=== PATIENT | male | born 1945 | race Caucasian/White ===

== ENCOUNTER 2018-01-06 15:37 | Observation (INO) | payer MEDICARE, BC ==
[~2018-01-06] VITALS: Ht 170.2 cm; Wt 86.2 kg
[~2018-01-06 15:37] MED LIST: ESCITALOPRAM OX20 MG PO; FLOMAX0.4 MG PO; NASAL SPRAY30 ML; TRAMADOL HCL50 MG PO
[2018-01-06] MEDS ORDERED: LIPITOR10 MG (16:24)
[2018-01-06] MEDS ORDERED: FLONASE SENSIM5.9 ML NS (16:26)
--- NOTE | 2018-01-06 19:30 | NUR ---
BEDSIDE REPORT RECEIVED FROM SERGIO METCALF. PT AWAKE, HOB ELEVATED. AT BEDSIDE. PT ON 3L OXYGEN BY OXYMASK, SPO2 90%, HR 91, CONT. PULSE OX IN PLACE. PT NOT COUGHING AT THIS TIME. PERSONAL SUPPLIES IN REACH, NO REQUESTS.
--- NOTE | 2018-01-06 22:25 | NUR ---
PT ASSESSMENT COMPLETE AT THIS TIME, PT COUGHING, PRN COUGH MEDICATION, AND LOSANGE ADMINISTERED. LUNGS CLEAR THROUGHOUT ALL LOBES. PT ALERT AND ORIENTED X 4. C/O SORE THROAT. PT DENIES TOILETING NEEDS. AT BEDSIDE. PT 90% ON 3L OXYGEN BY NC AT THIS TIME. CALL LIGHT IN REACH.
--- NOTE | 2018-01-06 23:39 | NUR ---
CHECKED ON PT, APPEARS TO BE SLEEPING, LYING ON LEFT SIDE, BREATHING NON-LABORED, SPO2 89% ON 3L OXYGEN BY NC. LIGHTS OFF IN ROOM.
--- NOTE | 2018-01-07 00:45 | NUR ---
CONT. PULSE OX ALARMING. PT COUGHING, PRN COUGH MEDICATION ADMINISTERED. PT OUT OF BED INDEPENDENTLY FOR VOID, EDUCATION PROVIDED REGARDING SAFETY, PT VERBALIZES UNDERSTANDING. SPO2 92% ON 2L OXYGEN BY NC. CALL LIGHT IN REACH, LIGHTS OFF IN ROOM.
--- NOTE | 2018-01-07 02:00 | NUR ---
PT ASSESSMENT COMPLETE. LUNGS CLEAR, DIMINISHED THROUGHOUT ALL LOBES, PT ON 2L OXYGEN BY OXYMASK, SATURATIONS WNL. PT HAS OCCASIONAL DRY COUGH. HR REGULAR RHYTHM. BOWEL TONES ACTIVE X 4, ABD SOFT. SCDS IN PLACE. CALL LIGHT IN REACH, LIGHTS OFF IN ROOM.
--- NOTE | 2018-01-07 04:52 | NUR ---
CHECKED ON PT, APPEARS TO BE SLEEPING, EYES CLOSED, BREATHING NON-LABORED, SPO2 91% ON 2L OXYGEN BY OXYMASK. LIGHTS OFF IN ROOM.
--- NOTE | 2018-01-07 05:03 | NUR ---
PT TITRATED TO 2L OXYGEN BY OXYMASK THIS SHIFT, SATURATIONS >90%. PRN COUGH MEDICATION ADMINISTERED THROUGHOUT SHIFT, PRN CEPACOL LOSANGES FOR SORE THROAT. LUNGS CLEAR THROUGHOUT LOBES THIS SHIFT. SCHEDULED NEB TREATMENTS. SBA TO RESTROOM FOR VOIDS. SCDS IN PLACE.
--- NOTE | 2018-01-07 06:39 | NUR ---
IN ROOM FOR PRN CEPACOL LOSANGE ADMINISTRATION. PRN COUGH MEDICATION ALSO ADMINISTERED A THIS TIME. PT 90% WITH 2L OXYGEN BY NC ON. CONT. PULSE OX IN PLACE. CALL LIGHT AND PERSONAL SUPPLIES IN REACH.
[2018-01-07] MEDS ORDERED: GUAIFEN-CODEINE10 ML PO (09:18)
[2018-01-07] MEDS ORDERED: PROAIR HFA8.5 GM INH (09:54)
[2018-01-07] MEDS ORDERED: FLOMAX0.4 MG PO (09:55)
--- NOTE | 2018-01-07 10:45 | NUR ---
PT AT BEDSIDE WITH SPOUSE. PT HAS CONTINUOUS PULSE OX IN PLACE, SATS BETWEEN 90-94%, CHANGED O2 PROBE TO DIFFERENT FINGER FOR BETTER RELIABILITY. PT DENIES SOB, NO MUCOUS. PT STATES HE HAS A DRY THROAT, GAVE LOSENGE PER ORDERS. PREPARING PATIENT FOR DISCHARGE.
--- NOTE | 2018-01-07 12:34 | NUR ---
FAXED CHART NOTES TO [facility] INCLUDING FACESHEET, ORDER, RT HOME QUALIFIER, ER NOTES, H AND P, DC SUMMARY, AND IMAGING, AFTER TALKING WITH VANESSA FROM [facility].
--- NOTE | 2018-01-08 17:06 | EKG ---
[facility] [address] [place] [address] Signed Sinus tachycardia Inferior infarct , age undetermined Abnormal ECG No previous ECGs available Confirmed by PARVEEN BE MD ([id number]) on 01/08/2018 5:05:52 PM Electronically Signed By: PARVEEN BE MD 01/08/18 1706 PATIENT NAME: SOLA VERMA Electrocardiogram DATE OF : 41 PHYSICIAN: PARVEEN BE MD REPORT #: [id number] REPORT IS CONFIDENTIAL AND NOT TO BE RELEASED WITHOUT AUTHORIZATION
== END 2018-01-07 13:16 | disposition home or self-care (01) ==
LOC: ED 15:37 → MS 15:38
PROVIDERS: ADMIT Internal Medicine
DX: J96.21 Acute and chronic respiratory failure with hypoxia (principal); J44.9 Chronic obstructive pulmonary disease, unspecified; E78.5 Hyperlipidemia, unspecified; F41.9 Anxiety disorder, unspecified; Z99.81 Dependence on supplemental oxygen; Z79.51 Long term (current) use of inhaled steroids; Z79.899 Other long term (current) drug therapy
CPT/HCPCS: 71045; 80053; 83735; 83880; 84484; 85025; 85379; 93005; 93010; 94640; 94761; 96374; 96375; 99285; G0378; J1200; J2060; J2405; J2930

== ENCOUNTER 2020-12-14 14:04 | Emergency (ER) | payer MEDICARE, BC ==
[~2020-12-14] VITALS: Ht 170.2 cm; Wt 79.4 kg
[~2020-12-14 14:04] MED LIST changes: +FLONASE SENSIM5.9 ML NS; +GUAIFEN-CODEINE10 ML PO; +LIPITOR10 MG; +PROAIR HFA8.5 GM INH
[2020-12-14] MEDS ORDERED: ASPIRIN81 MG PO (14:24)
--- OUTSIDE RECORDS SUMMARY | 2020-12-14 14:42 | XMS ---
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 Teresita has no Care Guidelines for this patient. Joaquim VISIT COUNT (12 MO.) 1 ANNE Cohn TOTAL 1 NOTE: Visits indicate total known visits. ED/UCC VISIT TRACKING (12 MO.) 12/14/2020 14:05 ANNE Grider OR TYPE: Emergency COMPLAINT: - FALL INPATIENT VISIT TRACKING (12 MO.) No inpatient visits to display in this time frame [email or web address]
--- NOTE | 2020-12-15 07:10 | EKG ---
[facility] [address] [place] [address] Signed Normal sinus rhythm Inferior infarct (cited on or before 06-JAN-2018) Abnormal ECG When compared with ECG of 06-JAN-2018 15:48, No significant change was found Confirmed by SHANNON VILLAFANA MD ([id number]) on 12/15/2020 7:10:29 AM Electronically Signed By: SHANNON VILLAFANA MD 12/15/20 0710 PATIENT NAME: SOLA VERMA FAVIOLA Electrocardiogram DATE OF : 41 PHYSICIAN: SHANNON VILLAFANA MD REPORT #: [id number] REPORT IS CONFIDENTIAL AND NOT TO BE RELEASED WITHOUT AUTHORIZATION
== END 2020-12-14 18:00 | disposition home or self-care (01) ==
LOC: ED 14:04
DX: T67.5XXA Heat exhaustion, unspecified, initial encounter (principal); R55 Syncope and collapse; J44.9 Chronic obstructive pulmonary disease, unspecified; E78.00 Pure hypercholesterolemia, unspecified; Z87.891 Personal history of nicotine dependence; Z79.899 Other long term (current) drug therapy; Z79.82 Long term (current) use of aspirin
CPT/HCPCS: 71045; 80053; 81001; 82550; 83690; 83735; 84484; 85025; 93005; 93010; 99284-25; J7030

== ENCOUNTER 2022-08-20 05:59 | Day surgery (SDC) | payer MEDICARE, BC ==
[~2022-08-20] VITALS: Ht 170.2 cm; Wt 79.5 kg
[~2022-08-20 05:59] MED LIST changes: +ASPIRIN81 MG PO; +SYMBICORT 16010.2 GM INH
[2022-08-20] MEDS ORDERED: LORAZEPAM2 MG PO (06:20)
[2022-08-20] MEDS ORDERED: MOTRIN IB200 MG PO (09:17)
[2022-08-20] MEDS ORDERED: TYLENOL EXTRA500 MG PO (09:17)
[2022-08-20] MEDS ORDERED: PERCOCET 7.5-31 EACH PO (09:18)
--- NOTE | 2022-08-20 09:31 | NUR ---
08/20/22 0931 Raquel Gary 0903-PATIENT ARRIVED TO PACU ON 8L MASK NONAROUSABLE RN DOING JAW THRUST TO MAINTAIN OPEN AIRWAY. IVF INFUSING. SR. ABDOMINAL BINDER TO ABDOMEN. PATIENT IS ON 4L NC AT NIGHT 09-PATIENTS HEAD REPOSITIONED AND MATINAING AIRWAY. 09-ERIC [employer] JUDGE REMAINS AT BESIDE PATIENT NOT MAINTAING OWN AIRWAY AND JAW THRUSTING. PATIETN REMAINS NONAROUSABLE. NEW ORDER RECEVEIVED FROM ERIC TO GIVE 0.2 RAMAZIN IVP 0912-0.2 RAMAZICON IVP GIVEN. PATIENTS HOB ELEVATED. MOUTH SUCTIONED THIN SECRETIONS. 09-PATIENT TRYING TO OPEN EYES TO VERBAL STIMULI SAYS A FEW WORDS AND UNABLE TO COMPREHEND.
--- NOTE | 2022-08-20 09:38 | NUR ---
[id number]: PT ARRIVES TO DS DEPT AMBULATORY WITH ASSIST FROM SPOUSE. PT SEDATED ON ARRIVAL, SPOUSE STATES PT "TOOK ALL [address] GIBBS PRESCRIBED." PT SATS 93% ON ARRIVAL AND QUICKLY DESATS TO 89% ON RA. 4L 02 VIA NC DONNED, SATS INCREASE TO 93-95%. PT SPOUSE STATES "HE HAS COPD AND WEARS 4L NIGHTLY." PT DOES NOT AROUSE WITH VERBAL STIMULI AND SLIGHTLY AROUSES WITH PAINFUL STIMULI. PT HAS GARBLED LANGUAGE THAT IS NOT UNDERSTOOD AND INTERMITTENTLY HAS AUDIBLE SNORING. 0720: DR. GIBBS IN TO SEE PT. PT AROUSES WITH PAINFUL STIMULI AND PT IS TAKEN TO OR AT THIS TIME.
--- NOTE | 2022-08-20 10:10 | NUR ---
PATIENT'S SPOUSE IS AT THE BEDSIDE. CALL LIGHT IS WITHIN REACH. ICED WATER GIVEN.
[2022-08-20] MEDS ORDERED: PERCOCET 5-3251 EACH PO (10:38)
--- NOTE | 2022-08-20 11:29 | NUR ---
LE 1129 PATIENT USED URINAL. VOIDED 250 MLS OF CLEAR AND YELLOW URINE. FAMILY AT BEDSIDE CALL LIGHT WITHIN REACH NO FUTHER NEEDS. NO QUESTIONS AT THIS TIME.
--- NOTE | 2022-08-20 11:32 | NUR ---
REPORT FROM NURSE WALKING BY PATIENT'S ROOM HEARD OXIMETER ALARM. PATIENT WAS 78% ON 6L VIA NC. HE IS MOVED TO 10L O2 BY MASK DELIVERY AND HIS SATURATION INCREASES TO 93% OXYGEN SATURATION IS 96% ON 10L VIA MASK DELIVERY. I REDUCE THE OXYGEN DELIVERY TO 6L VIA MASK WHILE I AM IN THE ROOM AND HIS OXYGEN SATURATION REMAINS ABOVE 90% PLAN OF OVERNIGHT CARE DISCUSSED WITH FAMILY AND SHE VERBALIZES UNDERSTANDING.
--- NOTE | 2022-08-20 13:18 | NUR ---
PT TO FLOOR WITH SERGIO OKEEFE. IN ROOM. PT AROUSABLE TO NAME AND ABLE TO FOLLOW DIRECTIONS TO SCOOT HIMSELF TO THE BED. PAINFUL WITH MOVEMENT BUT TOLERATED WELL. BOTH AWARE OF PAIN MED SITUATION. VS STABLE. PULSE OX IN PLACE. NORCO SCRIPT GIVEN TO . CALL LIGHT IN REACH BUT ALSO INFORMED PT HE IS RIGHT NEXT TO RN STATION.
--- NOTE | 2022-08-20 14:14 | NUR ---
PT GIVEN MEDS THAT HAVE PUT HIM IN A DEEP SLEEP. YUVAL PRESENT. PLANS TO GO HOME BRIEFLY HE IS TAKEN TO OR. WILL RETURN, GAVE BLESSING WILL FOLLOW.
--- NOTE | 2022-08-20 14:16 | NUR ---
ADMINISTERED TORADOL FOR 6\10 ABDOMINAL PAIN. PT REMAINS DROWSY BUT AROUSABLE. DRESSING AND ABD BINDER IN PLACE WITH MINIMAL AMT DRAINAGE AT BOTTOM OF DRESSING.
--- NOTE | 2022-08-20 16:30 | NUR ---
VS ASSESSED. PT AWAKE AND GIVEN TYLENOL AND PUDDING. TRIED TAKING OFF OX BUT DESATS TO 87. PLACED ON 2L NC. RATES PAIN 6\10 WITH A HIGHER RATING W\MOVEMENT. DRESSING REMAINS SAME BEFORE.
--- NOTE | 2022-08-20 16:52 | NUR ---
CALLED DR GIBBS FOR PAIN 8\10. HAD ALREADY GIVEN TYLENOL AND TORADOL. PUT IN ORDER FOR OXY.
--- NOTE | 2022-08-20 19:05 | NUR ---
SHIFT REPORT RECEIVED FROM DAYSNVFT SERGIO METCALF AT BEDSIDE, pt RESTING IN BED, ON 1.5-2LNC, RR EVEN AND UNLABORED. NO DISTRESS NOTED. CPOX IN PLACE, SPO2 AND HR WNL. BED ALARM ON FOR SAFETY AND CALL LIGHT IN REACH. IV FLUIDS INFUSING WNL. WILL CONTINUE TO MONITOR.
--- NOTE | 2022-08-20 21:30 | NUR ---
ASSESSMENT COMPLETE, SCHEDULED MEDS GIVEN-SEE EMAR. pt A/O, VSS. CPOX IN PLACE, ON 2LNC. RR EVEN AND UNLABORED, NO DISTRESS NOTED. IV FLUIDS INFUSING DIRECTED, IV SITE WNL AND FLUSHES EASILY. SCD'S IN PLACE. pt REPORTS TOLERABLE PAIN AT REST, INCREASES W/ ACTIVITY IN BED. DISCUSSED AVAILABLE PAIN MEDS WITH pt, AGREES W/ POC REGARDING PAIN CONTROL. NO ADDITIOANL NEEDS, CALL LIGHT IN REACH AND BED ALARM ON.
--- NOTE | 2022-08-20 23:17 | NUR ---
deena de la vega PT, scheduled tylenola nd prn oxy given for reported 6/10 pain, exacerbated with movement in bed. abd binder remains in palce, call light in reach and bed alrm on.
--- NOTE | 2022-08-20 23:30 | NUR ---
pt GOT OOB SBA, AMBULATED A FEW STEPS AROUND BED, TOLERATED WELL, STATES, "THAT WAS GOOD". ASSISTED WITH USE FO URINAL. SCD'S IN PLACE AND CALL LIGHT IN REACH, BED ALARM RESUMED. IV SITE WNL, FLUIDS INFUSING DIRECTED.
--- NOTE | 2022-08-21 01:07 | NUR ---
rounded on pt, pt resting in bed with eyes closed. on 2lnc, rr even and unlabored. spo2 92%, hr low 90's. no distress noted, bed alarm on for safety and call light in reach.
--- NOTE | 2022-08-21 01:54 | NUR ---
assessment complete, no acute changes. pt reports passing gas earlier in the shift. bowel tones active, no change in abd distention. pt denies nausea. abd binder remains in place. new bag iv fluids hung and infusing as directed. pt reports pain remains tolerable, will continue to monitor. call light in reach and scd's in place. no change to shadowing to abd dressing.
--- NOTE | 2022-08-21 03:35 | NUR ---
ROUNDED ON pt, pt RESTING QUIETLY IN BED WITH EYES CLOSED. ON 2LNC, SPO2 AND HR WNL. CALL LIGHT IN REACH AND BED ALARM ON FOR SAFETY.
--- NOTE | 2022-08-21 04:28 | NUR ---
ROUNDED ON pt, pt RESTING QUIETLY IN BED, ON 2LNC. RR EVEN AND UNLABORED. NO DISTRESS NOTED, CPOX AT BEDSIDE-SPO2 AND HR WNL. CALL LIGHT IN REACH AND BED ALARM ON.
--- NOTE | 2022-08-21 05:04 | NUR ---
call light answered, vs and i&o's collected. prn pain medication given for reported 8/10 pain in abd, reported improvement after prn toradol-see emar. bed alarm on and call light in reach.
--- NOTE | 2022-08-21 06:29 | NUR ---
SCHEDULED TYLENOL GIVEN-SEE EMAR. pt REPORTS TOLERABLE 5/10 PAIN, STATES, "I JUST FELL ASLEEP". NO ADDITIONAL NEEDS OR CONCERNS VERBALIZED. CALL LIGHT IN REACH. BED ALARM ON.
--- NOTE | 2022-08-21 07:09 | NUR ---
REPORT FROM SERGIO WOOD. PATIENT ALERT AND ORIENTED, SITTING UP IN BED. DRESSING TO ABDOMEN REMAINS WITH MINIMAL SHADOWING. DENIES NEEDS AT THIS TIME. CALL LIGHT IN REACH, BED RAILS UP X2.
[2022-08-21] MEDS ORDERED: OXYCODONE HCL5 MG PO (08:37)
--- NOTE | 2022-08-21 09:40 | NUR ---
PATIENT USES CALL LIGHT STATING IV IS NO LONGER IN HIS ARM. HOLDING IV CATHETER IN HAND WHEN THIS NURSE ENTERS ROOM. CATHETER INTACT. DRESSING REMOVED AND GAUZE WITH COBAN TO IV SITE. PAIN TOLERABLE AT THIS TIME. STATES HE WOULD LIKE TO GET DRESSED. CONTINUOUS PULSE OX DC'D. PATIENT REMOVES OXYGEN TO GET DRESSED AND SIT IN RECLINER. STATES HIS IS AT AN APPOINTMENT BUT WILL BE IN THIS AM. INSTRUCTED TO CALL STAFF WHEN READY FOR DC PAPERS. VERBALIZES UNDERSTANDING.
--- NOTE | 2022-08-21 12:52 | NUR ---
ENTERED PT , HIS WITH WITH HIM HE IS DRESSED AND SHE STATES THAT THEY DON'T NEED ME. WE ARE READY TO LEAVE. ENCOURAGED PT TO HAVE A SEAT-PTS' ADMITTED THAT DC PAPERWORK BY RN HAS NOT HAPPENED YET. INFORMED HOUSE JARROD COOPER, SHE WENT TO PT AND HAD THEM HAVE A SEAT. PHARMACY AND RN PILAR IN AND GAVE DC INS. WILL FOLLOW
--- NOTE | 2022-08-22 08:29 | OR ---
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 Repair of recurrent incisional hernia (fascial defect 6 cm plus). 2. Implantation of Prolene mesh underlay technique. ANESTHESIA: General endotracheal, Aysha Priscilla, FOREST FIRE LOOKOUT and local 10 mL of 0.25% Marcaine with epinephrine. INDICATIONS: This 77-year-old white man is a patient of Naomy Severino M.D. He has undergone umbilical hernia repair in the distant past with subsequent recurrent hernia (incisional hernia), all of this elsewhere. He is known to me from the past having undergone colonoscopy in 2017. His initial hernia was repaired in 2010 in [place], and subsequently in 2012 in [place]. He is now known to have a non-reducible uncomfortable recurrence of hernia in the region of the umbilicus and prior incisional hernia repair. He is admitted at this time to undergo repair. He understands the risks of bleeding, infection, and of course recurrence. He understands he wished to proceed. FINDINGS: A multi-defect hernia was noted. Prior Prolene mesh was identified. Most of the defect occurred to the right of the midline. Repair consisted of reduction of incarcerated omentum, which was a herniated viscus as well as definition of the properitoneal space. Closure of the peritoneal defect and implantation of Prolene mesh in an underlay technique extending 4 cm circumferentially around the defect, which ultimately was about 6 cm. Closure of the fascia over the mesh was undertaken as well. DESCRIPTION OF PROCEDURE: The patient was brought to the operating room, given a general endotracheal anesthetic. Preoperative antibiotic Ancef was given. Sequential compression device stockings used. Electronically Signed By: MATTHIEU GIBBS MD 08/22/22 0829 PATIENT NAME: SOLA VERMA OPERATIVE REPORT DATE OF : 41 REPORT #: [id number] PHYSICIAN: MATTHIEU GIBBS MD PCP: NAOMY SEVERINO MD REPORT IS CONFIDENTIAL AND NOT TO BE RELEASED WITHOUT AUTHORIZATION [facility] [address], [place] [address] Signed The abdomen was clipped and prepared with a chlorhexidine solution and draped sterilely. Palpation at the umbilicus in the area of prior incision, which was predominantly a transverse incision was undertaken, but no reduction of the hernia could be undertaken. A curvilinear incision was made around the left side of the umbilicus and dissection carried through the subcutaneous tissue with blunt electrocautery dissection. Ultimately, he was found was herniated omentum through the subcutaneous space. This was circumferentially and ultimately freed from the overlying umbilical skin. It appeared to the incarcerated viscus was omentum and without sign of hollow viscus incarceration. Prolene sutures from the past were noted as was fibrosis from probable mesh implantation. The edge of the hernia sac was freed and it appeared to be a multi-defect type hernia. The fascial bridges that incorporated the multi-defect were divided, ultimately providing access to the omentum more fully to allow for reduction into the abdominal cavity. Once the omentum was fully replaced into the peritoneal cavity, a defect in the peritoneum was well identified and internal inspection showed no sign of ascites or carcinomatosis. Allis clamps were applied to the fascial edges and the properitoneal space was developed primarily with blunt and but also electrocautery dissection where fusion from prior mesh was noted. Ultimately, the properitoneal space was fully freed up and the peritoneum was then reapproximated with running 2-0 Vicryl suture. The properitoneal space was developed circumferentially 4 cm around the fascial defect, which ultimately was about 6 cm in length. A segment of 3 inch x 6 inch Prolene mesh was cut to an elliptical configuration and secured into the properitoneal space with interrupted 0-Prolene sutures with Prolene pledgets. Once fully secured and well configured, the midline fascia was reapproximated with interrupted horizontal mattress of 0-Prolene with Prolene pledgets as well. A 10 mL of 0.25% Marcaine with epinephrine was injected locally. Irrigation was undertaken. Hemostasis assured with electrocautery. Izaiah layer was reapproximated with interrupted 2-0 Vicryl and skin closed with running subcuticular 3-0 Vicryl. Steri-Strips were applied as was the Acticoat dressing. The patient was ultimately extubated and transferred to the recovery room in good condition, having suffered no complications. Sponge, needle, and instrument counts reported as correct x3. Matthieu Gibbs MD Electronically Signed By: MATTHIEU GIBBS MD 08/22/22 0829 PATIENT NAME: SOLA VERMA OPERATIVE REPORT DATE OF : 41 REPORT #: [id number] PHYSICIAN: MATTHIEU GIBBS MD PCP: NAOMY SEVERINO MD REPORT IS CONFIDENTIAL AND NOT TO BE RELEASED WITHOUT AUTHORIZATION [facility] [address] [place], [place] [address] Signed /MAIKEL /[id number] cc: Naomy Severino M.D. Copies: ~ Electronically Signed By: MATTHIEU GIBBS MD 08/22/22 0829 PATIENT NAME: SOLA VERMA FAVIOLA OPERATIVE REPORT DATE OF : 41 REPORT #: [id number] PHYSICIAN: MATTHIEU GIBBS MD PCP: NAOMY SEVERINO MD REPORT IS CONFIDENTIAL AND NOT TO BE RELEASED WITHOUT AUTHORIZATION
== END 2022-08-21 10:50 | disposition home or self-care (01) ==
LOC: DS 05:59 → MS 12:55 → DS 08-21 10:50
PROVIDERS: ATTEND Surgery
PROC: 0WUF0JZ Supplement Abdominal Wall with Synthetic Substitute, Open Approach (ICD-10-PCS; principal; 2022-08-20 07:30)
DX: K43.0 Incisional hernia with obstruction, without gangrene (principal); J44.9 Chronic obstructive pulmonary disease, unspecified
CPT/HCPCS: A9270; C1781; J0131; J0690; J1644; J1885; J2001; J2370; J2704; J7121